=== PATIENT | female | born 1970 | race Caucasian/White ===

== ENCOUNTER 2017-07-23 14:59 | Emergency (ER) | payer BC, OTHER ==
[2017-07-23] MEDS ORDERED: Ondansetron ODT 4 MG TAB ONE (15:13)
[2017-07-23 15:41] LABS: #Basophils 0.1 thou/uL (0.0-0.2); #Eosinphils 0.1 thou/uL (0.0-0.7); #Lymphocytes 2.7 thou/uL (1.20-3.40); #Monocytes 0.7 thou/uL (0.11-0.59); #Neutrophils 7.2 thou/uL (1.40-6.50); %Basophils 0.6 % (0.0-1.0); %Lymphocytes 25.3 % (21.0-51.0); %Monocytes 6.6 % (0.0-10.0); %Neutrophils 66.5 % (42.0-75.0); Hemoglobin 13.5 g/dL (12.0-16.0); Mean Corpuscular HGB CONC 33.5 g/dL (32.0-36.0); Mean Corpuscular Hemoglobin 30.2 pg (27.0-31.0); Mean Corpuscular Volume 90.2 fl (81.0-99.0); Mean Platelet Volume 8.8 fL (7.4-10.4); Platelet Count 275 thou/uL (130-400); RBC Distribution Width 11.8 % (11.5-14.5); Red Blood Cell (RBC) Count 4.47 mill/uL (4.20-5.40); White Blood Cell (WBC) Count 10.8 thou/uL (4.8-10.8)
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
[2017-07-23 16:04] LABS: ALT (SGPT) 18 U/L (8-55); AST (SGOT) 18 U/L (5-34); Albumin 4.6 g/dL (3.5-5.0); Alkaline Phosphatase 51 U/L (40-150); Anion Gap 14 mmol/L (10-20); BUN (Urea Nitrogen) 13 mg/dL (7.0-18.7); Bilirubin, Total 0.2 mg/dL (0.2-1.2); Calc. Creatinine Clearance 0 mL/min (70-130); Carbon Dioxide 27 mmol/L (22-29); Chloride 102 mmol/L (98-107); Estimated GFR-MDRD 82; Globulin 2.9 g/dL (2.4-3.5); Glucose 97 mg/dL (70-105); Lipase 15 U/L (8-78); Potassium 3.5 mmol/L (3.5-5.1); Protein, Total 7.5 g/dL (6.0-8.3); Sodium 139 mmol/L (136-145)
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
== END 2017-07-23 17:05 | disposition home or self-care (01) ==
LOC: ERS 14:59
DX: S16.1XXA Strain of muscle, fascia and tendon at neck level, initial encounter (principal); S39.013A Strain of muscle, fascia and tendon of pelvis, initial encounter; S39.012A Strain of muscle, fascia and tendon of lower back, initial encounter; T14.8XXA Other injury of unspecified body region, initial encounter; E03.9 Hypothyroidism, unspecified; Z79.84 Long term (current) use of oral hypoglycemic drugs; Z79.899 Other long term (current) drug therapy; V89.2XXA Person injured in unspecified motor-vehicle accident, traffic, initial encounter; W22.11XA Striking against or struck by driver side automobile airbag, initial encounter
CPT/HCPCS: 70450; 71045; 72125; 72128; 72131; 72170; 80053; 83690; 85025; 96361; 96374; J2270; Q0162

== ENCOUNTER 2018-09-02 08:07 | Outpatient (CLI) | payer BC, SELFPAY ==
--- NOTE | 2018-09-02 09:10 | MMO ---
Bilateral MAMMO Bilat Screen [facility]. CLINICAL HISTORY: Patient is 48 years old and is seen for screening. The patient has no family history of breast cancer. The patient has no personal history of cancer. VIEWS: The views performed were: bilateral craniocaudal with tomosynthesis; bilateral mediolateral oblique with tomosynthesis; and bilateral exaggerated craniocaudal. FILMS COMPARED: The present examination has been compared to prior imaging studies performed at [facility] on 11/03/2008, 05/10/2010, 02/23/2013, 11/30/2014, 01/11/2016 and 01/14/2016. MAMMOGRAM FINDINGS: The breasts are heterogeneously dense, which could obscure a lesion on mammography. There is a focal asymmetry seen in the left breast. In the right breast, there are no suspicious masses, calcifications or areas of architectural distortion. IMPRESSION: FOCAL ASYMMETRY IN THE LEFT BREAST REQUIRES ADDITIONAL EVALUATION. AN ULTRASOUND EXAM IS RECOMMENDED IF NEEDED. RECOMMEND DIAGNOSTIC MAMMOGRAM. THE RESULTS OF THIS EXAM WERE SENT TO THE PATIENT. ACR BI-RADS Category 0 - Incomplete: Need additional imaging evaluation. [facility] will notify the patient of the need for additional imaging services. MAMMOGRAPHY NOTE: 1. A negative mammogram report should not delay a biopsy if a dominant of clinically suspicious mass is present. 2. Approximately 10% to 15% of breast cancers are not detected by mammography. 3. Adenosis and dense breasts may obscure an underlying neoplasm.
== END 2018-09-02 08:08 | disposition home or self-care (01) ==
LOC: BICMAMMO 08:07
PROVIDERS: ATTEND Obstetrics & Gynecology
DX: Z12.31 Encounter for screening mammogram for malignant neoplasm of breast (principal); N64.89 Other specified disorders of breast
CPT/HCPCS: 77063; 77067

== ENCOUNTER 2018-09-08 09:00 | Outpatient (CLI) | payer BC ==
--- NOTE | 2018-09-08 09:31 | MMO ---
Left Breast MAMMO Unilat Diag [facility]DI LT+[facility]IS[facility]. CLINICAL HISTORY: Patient is 48 years old and is seen for additional evaluation requested at current screening. The patient has no family history of breast cancer. The patient has no personal history of cancer. VIEWS: The views performed were: left craniocaudal spot compression with tomosynthesis; left mediolateral oblique spot compression with tomosynthesis; and left mediolateral with tomosynthesis. FILMS COMPARED: The present examination has been compared to prior imaging studies performed at [facility] on 11/03/2008, 05/10/2010, 02/23/2013, 11/30/2014, 01/11/2016, 01/14/2016 and 09/02/2018. MAMMOGRAM FINDINGS: The breast is heterogeneously dense, which could obscure a lesion on mammography. Tomosynthesis and compression images show the abnormality to represent superimpostion of normal breast parenchyma. There are no suspicious masses, suspicious calcifications, or new areas of architectural distortion. IMPRESSION: THERE IS NO MAMMOGRAPHIC EVIDENCE OF MALIGNANCY. A ROUTINE FOLLOW-UP MAMMOGRAM IN 1 YEAR IS RECOMMENDED. THE RESULTS OF THIS EXAM WERE SENT TO THE PATIENT. ACR BI-RADS Category 2 - Benign finding MAMMOGRAPHY NOTE: 1. A negative mammogram report should not delay a biopsy if a dominant of clinically suspicious mass is present. 2. Approximately 10% to 15% of breast cancers are not detected by mammography. 3. Adenosis and dense breasts may obscure an underlying neoplasm.
== END 2018-09-08 09:01 | disposition home or self-care (01) ==
LOC: BICMAMMO 09:00
PROVIDERS: ATTEND Obstetrics & Gynecology
DX: R92.2 Inconclusive mammogram (principal)
CPT/HCPCS: G0279

== ENCOUNTER 2019-05-30 09:05 | Outpatient (CLI) | payer BC ==
--- NOTE | 2019-05-30 09:42 | RAD ---
Cervical spine 4 views: 05/30/2019 COMPARISON: None HISTORY: Spondylolisthesis, bilateral hand numbness, radiculopathy FINDINGS: Neutral lateral examination demonstrates mild anterolisthesis at C4-5 measuring approximate ly 2-3 mm. On the flexion imaging anterolisthesis at C4-5 measures approximately 3 mm. On extension imaging the anterolisthesis at C4-5 measures approximately 2 mm. The frontal imaging demonstrates significant multilevel mid cervical spine facet and uncovertebral os teophyte formation, left greater than right, most prominent at C3-4, C4-5, and C5-6. No prevertebral soft tissue swelling. IMPRESSION: Multilevel degenerative change as detailed above.
== END 2019-05-30 09:06 | disposition home or self-care (01) ==
LOC: BICRAD 09:05
PROVIDERS: ATTEND Specialist
DX: M43.12 Spondylolisthesis, cervical region (principal); M47.812 Spondylosis without myelopathy or radiculopathy, cervical region
CPT/HCPCS: 72050

== ENCOUNTER 2019-07-27 08:38 | Outpatient (CLI) | payer BC | END 2019-07-27 08:39 | disposition home or self-care (01) | LOC: CTENTCT 08:38 | PROVIDERS: ATTEND Specialist | DX: J32.9 Chronic sinusitis, unspecified (principal) | CPT/HCPCS: 70486 ==

== ENCOUNTER 2020-09-26 08:15 | Outpatient (CLI) | payer BC | END 2020-09-26 08:16 | disposition home or self-care (01) | LOC: BICMAMMO 08:15 | PROVIDERS: ATTEND Obstetrics & Gynecology | DX: Z12.31 Encounter for screening mammogram for malignant neoplasm of breast (principal) | CPT/HCPCS: 77063; 77067 ==

== ENCOUNTER 2021-01-15 | Emergency (ER) | payer OTHER | END 2021-01-15 18:04 | disposition home or self-care (01) ==

== ENCOUNTER 2021-07-18 10:23 | Observation (INO) | payer BC ==
[2021-07-18] MEDS ORDERED: Zolpidem Tartrate 5 MG TAB PO PRN (10:40)
[2021-07-18] MEDS ORDERED: Ondansetron PF 4 MG/2 ML Vial IVP PRN (10:40)
[2021-07-18] MEDS ORDERED: hydrALAZINE 20 MG/ML VIAL SLOW IVP PRN (10:40)
[2021-07-18] MEDS ORDERED: diphenhydrAMINE 50 MG/ML VIAL IVP PRN (10:40)
[2021-07-18 12:01] VITALS: BMI 34.9
[2021-07-18] MEDS: Morphine 4 MG/ML VIAL SLOW IVP PRN ×2 (12:13→15:45)
[2021-07-18] MEDS: Ketorolac Tromethamine 30 MG/ML VIAL IVP SCH ×3 (12:14→23:39)
[2021-07-18] MEDS: Sodium Chloride 0.9% 1,000 ML IV SCH ×2 (12:17→20:16)
[2021-07-18] MEDS: HYDROcodone/Acetaminophen 5/325 mg Tablet PO PRN ×3 (13:45→22:18)
[2021-07-18] MEDS ORDERED: FLU VACC QS2021-22(6MOS UP)/PF 60 MCG/0.5 ML SYRINGE IM ONE (18:00)
[2021-07-18] MEDS: Docusate 100 MG CAP PO SCH (20:16)
[2021-07-19 00:14] LABS: SARS-CoV-2 PCR by NAA Not Detected (NotDetected)
[2021-07-19] MEDS: HYDROcodone/Acetaminophen 5/325 mg Tablet PO PRN ×3 (03:34→16:44)
[2021-07-19] MEDS: Ketorolac Tromethamine 30 MG/ML VIAL IVP SCH ×2 (05:37→13:44)
[2021-07-19] MEDS ORDERED: Tamsulosin HCl 0.4 MG CAP PO SCH (09:00)
[2021-07-19] MEDS ORDERED: Iothalamate Meglumine 60% 50 ML VIAL FS ONE (12:21)
[2021-07-19] MEDS ORDERED: Fentanyl 250 MCG/5 ML VIAL ONE ×2 (12:27→13:40)
[2021-07-19] MEDS ORDERED: Levofloxacin 500 mg/D5W 100 ml Premix Bag ONE (12:32)
[2021-07-19] MEDS ORDERED: Dexamethasone 20 MG/5 ML VIAL ONE (12:38)
[2021-07-19] MEDS ORDERED: Ondansetron PF 4 MG/2 ML Vial ONE (12:38)
[2021-07-19] MEDS ORDERED: PROPOFOL 200 MG/20 ML VIAL ONE (12:38)
[2021-07-19] MEDS ORDERED: Lidocaine 1% PF 5 ML VIAL ONE (12:38)
[2021-07-19] MEDS: Sodium Chloride 0.9% 1,000 ML IV SCH (13:42)
[2021-07-19] MEDS: Docusate 100 MG CAP PO SCH (13:43)
[2021-07-19] MEDS ORDERED: Ondansetron HCl/PF 4 MG/2 ML Vial IVP PRN (14:00)
[2021-07-19] MEDS ORDERED: Promethazine HCl 25 MG/ML VIAL IM/IV PRN (14:00)
[2021-07-19 18:23] VITALS: BP 105/67; TEMP 99.6
== END 2021-07-19 18:21 | disposition home or self-care (01) ==
LOC: T4-A 10:33
PROVIDERS: ADMIT Urology; ATTEND Urology
PROC: 0TC38ZZ Extirpation of Matter from Right Kidney Pelvis, Via Natural or Artificial Opening Endoscopic (ICD-10-PCS; principal; 2021-07-19)
PROC: 0TC68ZZ Extirpation of Matter from Right Ureter, Via Natural or Artificial Opening Endoscopic (ICD-10-PCS; 2021-07-19)
PROC: 0T768DZ Dilation of Right Ureter with Intraluminal Device, Via Natural or Artificial Opening Endoscopic (ICD-10-PCS; 2021-07-19)
DX: N13.2 Hydronephrosis with renal and ureteral calculous obstruction (principal); N13.4 Hydroureter; K21.9 Gastro-esophageal reflux disease without esophagitis; E11.9 Type 2 diabetes mellitus without complications; G43.909 Migraine, unspecified, not intractable, without status migrainosus; Z79.84 Long term (current) use of oral hypoglycemic drugs; Z79.899 Other long term (current) drug therapy; Z20.822 Contact with and (suspected) exposure to COVID-19
CPT/HCPCS: 74420; 82365; 88300; 96374; 96375; 96376; C2617; G0378; J1100; J1885; J1956; J2270; J2405; J2704; J3010; J7050; Q9961-U8; U0003; U0005

== ENCOUNTER 2022-11-20 15:14 | Outpatient (CLI) | payer BC | END 2022-11-20 15:15 | disposition home or self-care (01) | LOC: BICMRI 15:14 | PROVIDERS: ATTEND Nurse Practitioner Family | DX: M47.26 Other spondylosis with radiculopathy, lumbar region (principal); M47.815 Spondylosis without myelopathy or radiculopathy, thoracolumbar region; M47.816 Spondylosis without myelopathy or radiculopathy, lumbar region; M48.061 Spinal stenosis, lumbar region without neurogenic claudication; M71.38 Other bursal cyst, other site | CPT/HCPCS: 72148 ==

== ENCOUNTER 2023-06-12 14:15 | Outpatient (CLI) | payer BC | END 2023-06-12 14:16 | disposition home or self-care (01) | LOC: BICMAMMO 14:15 | PROVIDERS: ATTEND Nurse Practitioner Family | DX: Z12.31 Encounter for screening mammogram for malignant neoplasm of breast (principal); Z85.828 Personal history of other malignant neoplasm of skin | CPT/HCPCS: 77063; 77067 ==